=== PATIENT | male | born 1960 ===

== ENCOUNTER 2017-05-19 | Inpatient (IN) | payer OTHER ==
[~2017-05-19] MED LIST: Gadodiamide 287 mg/ml 20 ml IV ONE
[2017-05-19] MEDS ORDERED: Sodium Chloride 0.9% 1,000 ML IV ONE (00:22)
[2017-05-19] MEDS ORDERED: Sodium Chloride 0.9% 1,000 ML ONE (00:35)
[2017-05-19 00:50] LABS: BASO % 0.2 % (0.0-2.0); EOS # 0.1 K/uL (0.0-0.7); EOS % 0.4 % (0.0-4.0); HEMOGLOBIN 13.9 g/dL (12.0-18.0); LYMPH # 0.5 K/uL (1.0-4.3); LYMPH % 3.4 % (20.0-40.0); MEAN CELL VOLUME 82.4 fL (80.0-94.0); MEAN PLATELET VOLUME 9.3 fL (7.2-11.7); MONO # 0.1 K/uL (0.0-0.8); MONO % 0.7 % (0.0-10.0); NEUT # 14.8 K/uL (1.8-7.0); NEUT % 95.3 % (50.0-75.0); PLATELET COUNT 286 K/uL (130-400); RBC 4.98 Mil/uL (4.40-5.90); RED CELL DISTRIBUTION WIDTH 14.6 % (11.5-14.5); WHITE BLOOD COUNT 15.5 K/uL (4.8-10.8)
[2017-05-19 00:55] LABS: URINE BILIRUBIN NEGATIVE (NEGATIVE); URINE CLARITY Clear (Clear); URINE COLOR Yellow (YELLOW); URINE GLUCOSE (UA) NORMAL (Normal); URINE LEUKOCYTE ESTERASE NEG Leu/uL (Negative); URINE NITRATE NEGATIVE (NEGATIVE); URINE PROTEIN NEGATIVE (NEGATIVE)
[2017-05-19 00:56] LABS: URINE BLOOD 1+ (NEGATIVE)
[2017-05-19 01:07] LABS: ALB/GLOB RATIO 1.1 (1.0-2.1); ALBUMIN 3.9 g/dL (3.5-5.0); ALT/SGPT 334 U/L (21-72); AST/SGOT 234 U/L (17-59); BLOOD UREA NITROGEN 14 mg/dL (9-20); CALCIUM 9.3 mg/dl (8.6-10.4); GFR AFRICAN-AMERICAN > 60; GFR NON-AFRICAN AMERICAN > 60; LIPASE 96 U/L (23-300)
[2017-05-19] MEDS ORDERED: Iodixanol 320 MG/ML 100 ML BOTTLE IV ONE (01:17)
--- NOTE | 2017-05-19 01:55 | C.PDOC ---
History Of Present Illness 56 yo male w/PMHx of NIDDM, HTN, come in for evaluation of fever, chills, epigastric pain associated with N/V gradually developed since yesterday. Pt reports, epigastric pain worse after food intake, today had 4 episodes of non- bilious vomiting. Otherwise, pt denies high fever, lethargy, headache, dizziness , sore throat, neck pain, cough, CP, SOB, dyspnea, wheezing, hematemesis, melena , diarrhea, back pain, UTI sx, rash, denies recent travel or known sick contact. Ambulate to ED for evaluation, appears in pain. Time Seen by Provider: 05/19/17 00:04 Chief Complaint (Nursing): Abdominal Pain History Per: Patient Onset/Duration Of Symptoms: Gradual Past Medical History Reviewed: Historical Data, Nursing Documentation, Vital Signs Vital Signs: Last Vital Signs Temp 98 F 05/21/17 16:00 Pulse 64 05/21/17 16:00 Resp 20 05/21/17 16:00 BP 156/96 H 05/21/17 16:00 Pulse Ox 98 05/21/17 16:00 - Medical History PMH: Diabetes, HTN, Hypercholesterolemia Surgical History: Cholecystectomy Family History: States: No Known Family Hx - Social History Hx Tobacco Use: No Hx Alcohol Use: Yes Hx Substance Use: No - Immunization History Hx Tetanus Toxoid Vaccination: No Hx Influenza Vaccination: No Review Of Systems Except As Marked, All Systems Reviewed And Found Negative. Constitutional: Positive for: Fever, Chills ENT: Negative for: Nose Discharge, Nose Congestion, Throat Pain, Throat Swelling Cardiovascular: Negative for: Chest Pain, Palpitations Respiratory: Negative for: Cough, Shortness of Breath, Wheezing Gastrointestinal: Positive for: Nausea, Vomiting, Abdominal Pain. Negative for : Diarrhea, Melena, Hematochezia, Hematemesis Genitourinary: Negative for: Dysuria, Frequency, Incontinence Musculoskeletal: Negative for: Neck Pain, Back Pain Neurological: Negative for: Weakness, Numbness, Altered Mental Status, Headache , Dizziness Physical Exam - Physical Exam Appears: Well, Non-toxic, No Acute Distress Skin: Normal Color, Warm, Dry, No Rash, No Jaundice Head: Normacephalic Eye(s): bilateral: PERRL Ear(s): Bilateral: Normal Nose: No Flaring, No Discharge Oral Mucosa: Moist, No Drooling Throat: No Erythema, No Drooling Neck: Trachea Midline, Supple Cardiovascular: Rhythm Regular, No Murmur, No JVD Respiratory: No Decreased Breath Sounds, No Accessory Muscle Use, No Rales, No Rhonchi, No Stridor, No Wheezing Gastrointestinal/Abdominal: Soft, Tenderness (mild epigastric), No Organomegaly , No Distention, No Guarding, No Rebound Back: No CVA Tenderness Extremity: Normal ROM, No Deformity, No Swelling Neurological/Psych: Oriented x3, Normal Speech ED Course And Treatment - Laboratory Results Result Diagrams: 05/21/17 07:40 05/21/17 07:40 Lab Interpretation: Abnormal O2 Sat by Pulse Oximetry: 95 Pulse Ox Interpretation: Normal - Radiology CXR: Interpreted by Me, Viewed By Me CXR Interpretation: Yes: Infiltrates (RLL?) - CT Scan/US CT abd/pelvis Other Rad Studies (CT/US): Radiology Report Reviewed CT/US Interpretation: EXAM: CT Abdomen and Pelvis With Intravenous Contrast. CLINICAL HISTORY: 56 years old, male; Pain; Abdominal pain; Prior surgery; Surgery type: Cholysectomy; Additional info: Abd. Pain, high lft. TECHNIQUE: Axial computed tomography images of the abdomen and pelvis with intravenous contrast. All CT. scans at this facility use one or more dose reduction techniques, viz.: automated exposure control;. ma/kV adjustment per patient size (including targeted exams where dose is matched to indication; i.e. head) ; or iterative reconstruction technique. Coronal and sagittal reformatted images were created and reviewed. CONTRAST: 100 mL of [id number] administered intravenously. COMPARISON: No relevant prior studies available. FINDINGS: Lower thorax: No acute findings. ABDOMEN: Liver: Fatty infiltration. Minimal intrahepatic ductal dilatation. Gallbladder and bile ducts: Stent within common bile duct. Mild dilatation of common. hepatic/ proximal common bile duct. Soft tissue density within common hepatic/proximal common bile. duct. Apparent mild mural enhancement of common hepatic/common bile duct. Contracted or. surgically absent gallbladder. Pancreas: No ductal dilation. No mass. Spleen: No splenomegaly. Adrenals: No mass. Kidneys and ureters: No mass. No hydronephrosis. Stomach and bowel: Few segmental areas of probable underdistention of colon. No definite mural. thickening. No obstruction. Appendix: Normal caliber. No inflammation. PELVIS: Bladder: Unremarkable. Reproductive: Unremarkable as visualized. ABDOMEN and PELVIS: Intraperitoneal space: No significant fluid collection. No free air. Bones/ joints: Probable bone island. No acute fracture. Soft tissues: Small umbilical hernia containing sidewall of bowel. Tiny RIGHT inguinal hernia. containing fat. Vasculature: Unremarkable. No aneurysm. Lymph nodes: No pathologically enlarged lymph nodes. IMPRESSION: 1. Biliary ductal dilatation. Mild enhancement of common hepatic/common bile duct, cannot exclude. cholangitis. Soft tissue density within common hepatic/common bile duct may represent calculi or. mass. Suggest MRI/MRCP. 2. Incidental/non-acute findings are described above. Progress Note: Pt remained stable during the Ed evaluation, reports minimal improvement in pain. results review, pt has clinical findings c/w acute cholangitis, fever, acute leukocytosis with bandemia, abnormal LFTs. Blood cx- penidng. Zosyn given empirically. case discussed with Hospitalist and admission arranged. Disposition - Disposition Disposition: HOSPITALIZED Disposition Time: 03:15 Condition: FAIR - Clinical Impression Clinical Impression: Cholangitis
[2017-05-19 01:57] LABS: BANDS 24 % (0-2); LYMPHOCYTE 6 % (20-40); MYELOCYTE 1 % (0-0); NEUTROPHIL 69 % (50-75); PLATELET ESTIMATE NORMAL (NORMAL); TOTAL CELLS COUNTED 100
--- NOTE | 2017-05-19 03:09 | CT ---
EXAM: CT Abdomen and Pelvis With Intravenous Contrast CLINICAL HISTORY: 56 years old, male; Pain; Abdominal pain; Prior surgery; Surgery type: Cholysectomy; Additional info: Abd. Pain, high lft TECHNIQUE: Axial computed tomography images of the abdomen and pelvis with intravenous contrast. All CT scans at this facility use one or more dose reduction techniques, viz.: automated exposure control; ma/kV adjustment per patient size (including targeted exams where dose is matched to indication; i.e. head); or iterative reconstruction technique. Coronal and sagittal reformatted images were created and reviewed. CONTRAST: 100 mL of [id number] administered intravenously. COMPARISON: No relevant prior studies available. FINDINGS: Lower thorax: No acute findings. ABDOMEN: Liver: Fatty infiltration. Minimal intrahepatic ductal dilatation. Gallbladder and bile ducts: Stent within common bile duct. Mild dilatation of common hepatic/proximal common bile duct. Soft tissue density within common hepatic/proximal common bile duct. Apparent mild mural enhancement of common hepatic/common bile duct. Contracted or surgically absent gallbladder. Pancreas: No ductal dilation. No mass. Spleen: No splenomegaly. Adrenals: No mass. Kidneys and ureters: No mass. No hydronephrosis. Stomach and bowel: Few segmental areas of probable underdistention of colon. No definite mural thickening. No obstruction. Appendix: Normal caliber. No inflammation. PELVIS: Bladder: Unremarkable. Reproductive: Unremarkable as visualized. ABDOMEN and PELVIS: Intraperitoneal space: No significant fluid collection. No free air. Bones/joints: Probable bone island. No acute fracture. Soft tissues: Small umbilical hernia containing sidewall of bowel. Tiny RIGHT inguinal hernia containing fat. Vasculature: Unremarkable. No aneurysm. Lymph nodes: No pathologically enlarged lymph nodes. IMPRESSION: 1. Biliary ductal dilatation. Mild enhancement of common hepatic/common bile duct, cannot exclude cholangitis. Soft tissue density within common hepatic/common bile duct may represent calculi or mass. Suggest MRI/MRCP. 2. Incidental/non-acute findings are described above.
[2017-05-19] MEDS ORDERED: Piperacill/Tazo 3.375gm in Dex 3.375 GM/50 ML BAG IVPB STA (03:38)
[2017-05-19] MEDS ORDERED: Albuterol-Ipratrop 3 mg / 0.5 (3 ml) UD ONE (03:44)
[2017-05-19 03:49] LABS: MONOCYTE 0 % (0-10)
[2017-05-19] MEDS: Piperacillin/Tazobact 3.375 gm 100 ML IV STA ×2 (04:08→04:11)
[2017-05-19] MEDS ORDERED: Potassium Chloride 20 mEq ER Tab PO ONE (05:00)
[2017-05-19] MEDS: Sodium Chloride 0.9% 1,000 ML IV SCH ×2 (05:10→14:48)
--- NOTE | 2017-05-19 05:13 | CP.PCM.HP ---
<Nicki Dupree - Last Filed: 05/19/17 05:13> History of Present Illness - History of Present Illness History of Present Illness: CC: Abdominal pain HPI: Patient is a 56 year old male with PMH NIDDM and HTN who presents to the ED complaining of epigastric pain. Patient said the pain started a couple of days ago as a sharp pain radiating towards the right upper quadrant, worse with food, which gradually worsened until today when he started having fever, chills , nausea, and vomiting. Patient says he vomited 4 times today and describes it as non bloody and non bilious. Patient admits to associated dizziness, headache , weakness, and shortness of breath. Patient also admits to constipation, which he says is normal for him and not new. Of note, patient mentions that he had his gallbladder removed 10 years ago for similar symptoms. He also mentions recent travel to the [place] in February of last year. Patient denies syncope, changes in vision/hearing, chest pain, palpitations, diarrhea, changes in urination, and pain/numbness in the lower extremities. PMH: NIDDM and HTN Meds: Lisinopril/HCTZ 20/25 daily, Metformin 500 mg BID, Glipizide 5 mg daily Allergies: NKDA PSH: cholecystectomy (10 years ago) FH: mother had hypertension and of unknown liver disease, father had hypertension SH: drinks once/month 2-3 beers, denies tobacco and elicit drug use Present on Admission - Present on Admission Any Indicators Present on Admission: No Review of Systems - Review of Systems All systems: reviewed and no additional remarkable complaints except (as per HPI ) Past Patient History - Infectious Disease Hx of Infectious Diseases: None - Past Social History Smoking Status: Never Smoked - CARDIAC Hx Hypercholesterolemia: Yes Hx Hypertension: Yes - ENDOCRINE/METABOLIC Hx Diabetes Mellitus Type 2: Yes - PSYCHIATRIC Hx Substance Use: No - SURGICAL HISTORY Hx Cholecystectomy: Yes - ANESTHESIA Hx Anesthesia: Yes Hx Anesthesia Reactions: No Meds Allergies/Adverse Reactions: Allergies Allergy/AdvReac Type Severity Reaction Status Date / Time No Known Allergies Allergy Verified 05/19/17 00:14 Physical Exam - Constitutional Appears: Non-toxic, No Acute Distress - Head Exam Head Exam: ATRAUMATIC, NORMAL INSPECTION, NORMOCEPHALIC - Eye Exam Eye Exam: EOMI, Normal appearance, PERRL. absent: Scleral icterus - ENT Exam ENT Exam: Mucous Membranes Moist - Neck Exam Neck exam: Positive for: Normal Inspection - Respiratory Exam Respiratory Exam: Clear to Auscultation Bilateral, NORMAL BREATHING PATTERN. absent: Accessory Muscle Use, Rales, Rhonchi, Wheezes, Respiratory Distress - Cardiovascular Exam Cardiovascular Exam: Tachycardia, REGULAR RHYTHM, +S1, +S2. absent: Bradycardia , Diastolic murmur, Gallop, Rubs, Systolic Murmur - GI/Abdominal Exam GI & Abdominal Exam: Normal Bowel Sounds, Soft, Tenderness (mild epigastric and RUQ). absent: Distended, Guarding - Extremities Exam Extremities exam: Positive for: normal inspection. Negative for: calf tenderness, pedal edema - Neurological Exam Neurological exam: Alert, Oriented x3 - Psychiatric Exam Psychiatric exam: Normal Affect, Normal Mood - Skin Skin Exam: Dry, Intact, Normal Color, Warm Results - Vital Signs Recent Vital Signs: Last Vital Signs Temp 99.9 F H 05/19/17 04:41 Pulse 80 05/19/17 04:41 Resp 14 05/19/17 04:41 BP 124/84 05/19/17 04:41 Pulse Ox 98 05/19/17 04:41 - Labs Result Diagrams: 05/19/17 00:47 05/19/17 00:47 Labs: Laboratory Results - last 24 hr 05/19/17 05/19/17 05/19/17 00:47 00:47 00:47 WBC 15.5 H RBC 4.98 Hgb 13.9 Hct 41.0 MCV 82.4 MCH 28.0 MCHC 34.0 RDW 14.6 H Plt Count 286 MPV 9.3 Neut % (Auto) 95.3 H Lymph % (Auto) 3.4 L [place] % (Auto) 0.7 Eos % (Auto) 0.4 Baso % (Auto) 0.2 Neut # (Auto) 14.8 H Lymph # (Auto) 0.5 L [place] # (Auto) 0.1 Eos # (Auto) 0.1 Baso # (Auto) 0.0 Neutrophils % (Manual) 69 Band Neutrophils % 24 H* Lymphocytes % (Manual) 6 L Monocytes % (Manual) 0 Myelocytes % 1 H Platelet Estimate Normal Sodium 139 Potassium 2.9 L Chloride 96 L Carbon Dioxide 29 Anion Gap 17 BUN 14 Creatinine 0.9 Est GFR ( Amer) > 60 Est GFR (Non-Af Amer) > 60 Random Glucose 182 H Calcium 9.3 Total Bilirubin 1.7 H AST 234 H ALT 334 H Alkaline Phosphatase 173 H Total Protein 7.6 Albumin 3.9 Globulin 3.7 Albumin/Globulin Ratio 1.1 Lipase 96 Urine Color Yellow Urine Clarity Clear Urine pH 6.0 Ur Specific [place] 1.012 Urine Protein Negative Urine Glucose (UA) Normal Urine Ketones Negative Urine Blood 1+ H Urine Nitrate Negative Urine Bilirubin Negative Urine Urobilinogen 2.0 Ur Leukocyte Esterase Neg Urine WBC (Auto) 1 Urine RBC (Auto) 7 H Influenza Typ A,B (EIA) 05/19/17 00:47 WBC RBC Hgb Hct MCV MCH MCHC RDW Plt Count MPV Neut % (Auto) Lymph % (Auto) [place] % (Auto) Eos % (Auto) Baso % (Auto) Neut # (Auto) Lymph # (Auto) [place] # (Auto) Eos # (Auto) Baso # (Auto) Neutrophils % (Manual) Band Neutrophils % Lymphocytes % (Manual) Monocytes % (Manual) Myelocytes % Platelet Estimate Sodium Potassium Chloride Carbon Dioxide Anion Gap BUN Creatinine Est GFR ( Amer) Est GFR (Non-Af Amer) Random Glucose Calcium Total Bilirubin AST ALT Alkaline Phosphatase Total Protein Albumin Globulin Albumin/Globulin Ratio Lipase Urine Color Urine Clarity Urine pH Ur Specific [place] Urine Protein Urine Glucose (UA) Urine Ketones Urine Blood Urine Nitrate Urine Bilirubin Urine Urobilinogen Ur Leukocyte Esterase Urine WBC (Auto) Urine RBC (Auto) Influenza Typ A,B (EIA) Negative for flu a/b Assessment & Plan (1) Cholangitis Assessment and Plan: * Given zosyn, zofran, pepcid, and 1L bolus NS in ED * GI consulted, Dr. Quarles, help appreciated * S/P cholecystectomy 10 years ago * Tachycardic @ 103 bpm * Leukocytosis 15.5, Bandemia 24 * Temp 100.2 on admission * BP stable @ 136/84 * AST/ALT/TBili: 234/334/1.7 * NPO, NS @ 100cc/h * blood cultures pending Imaging * Abdomen/Pelvis CT: Biliary ductal dilatation, mild enhancement of common hepatic/common bile duct (cannot exclude cholangitis), and soft tissue density within common hepatic/common bile duct, which may represent calculi or mass ( Suggest MRI/MRCP). Meds * Zosyn * Toradol prn pain * Motrin prn fever * Zofran prn nausea/vomiting Status: Acute (2) Hypokalemia Assessment and Plan: * K 2.9 on admission * replaced * monitor with morning labs Status: Acute (3) Lgl-[id number]-atsmybzid diabetes mellitus without complications Assessment and Plan: * Monitor with accuchecks ACHS * ISS low dose * Will hold home metformin and glipizide for now Status: Chronic (4) Hypertension Assessment and Plan: * BP 136/84 on admission * Start home med: Lisinopril/HCTZ 20/25 mg daily * monitor Status: Chronic (5) Constipation Assessment and Plan: * Colace 100 mg BID Status: Chronic (6) Prophylactic measure Assessment and Plan: * DVT: Ambulates, Heparin, SCDs * GI: protonix Status: Acute <Joselito Smith - Last Filed: 05/19/17 06:29> Results - Vital Signs Recent Vital Signs: Last Vital Signs Temp 98.3 F 05/19/17 05:12 Pulse 86 05/19/17 05:12 Resp 20 05/19/17 05:12 BP 114/74 05/19/17 05:12 Pulse Ox 97 05/19/17 05:12 - Labs Result Diagrams: 05/19/17 00:47 05/19/17 00:47 Labs: Laboratory Results - last 24 hr 05/19/17 05/19/17 05/19/17 00:47 00:47 00:47 WBC 15.5 H RBC 4.98 Hgb 13.9 Hct 41.0 MCV 82.4 MCH 28.0 MCHC 34.0 RDW 14.6 H Plt Count 286 MPV 9.3 Neut % (Auto) 95.3 H Lymph % (Auto) 3.4 L [place] % (Auto) 0.7 Eos % (Auto) 0.4 Baso % (Auto) 0.2 Neut # (Auto) 14.8 H Lymph # (Auto) 0.5 L [place] # (Auto) 0.1 Eos # (Auto) 0.1 Baso # (Auto) 0.0 Neutrophils % (Manual) 69 Band Neutrophils % 24 H* Lymphocytes % (Manual) 6 L Monocytes % (Manual) 0 Myelocytes % 1 H Platelet Estimate Normal Sodium 139 Potassium 2.9 L Chloride 96 L Carbon Dioxide 29 Anion Gap 17 BUN 14 Creatinine 0.9 Est GFR ( Amer) > 60 Est GFR (Non-Af Amer) > 60 Random Glucose 182 H Calcium 9.3 Total Bilirubin 1.7 H AST 234 H ALT 334 H Alkaline Phosphatase 173 H Total Protein 7.6 Albumin 3.9 Globulin 3.7 Albumin/Globulin Ratio 1.1 Lipase 96 Urine Color Yellow Urine Clarity Clear Urine pH 6.0 Ur Specific [place] 1.012 Urine Protein Negative Urine Glucose (UA) Normal Urine Ketones Negative Urine Blood 1+ H Urine Nitrate Negative Urine Bilirubin Negative Urine Urobilinogen 2.0 Ur Leukocyte Esterase Neg Urine WBC (Auto) 1 Urine RBC (Auto) 7 H Influenza Typ A,B (EIA) 05/19/17 00:47 WBC RBC Hgb Hct MCV MCH MCHC RDW Plt Count MPV Neut % (Auto) Lymph % (Auto) [place] % (Auto) Eos % (Auto) Baso % (Auto) Neut # (Auto) Lymph # (Auto) [place] # (Auto) Eos # (Auto) Baso # (Auto) Neutrophils % (Manual) Band Neutrophils % Lymphocytes % (Manual) Monocytes % (Manual) Myelocytes % Platelet Estimate Sodium Potassium Chloride Carbon Dioxide Anion Gap BUN Creatinine Est GFR ( Amer) Est GFR (Non-Af Amer) Random Glucose Calcium Total Bilirubin AST ALT Alkaline Phosphatase Total Protein Albumin Globulin Albumin/Globulin Ratio Lipase Urine Color Urine Clarity Urine pH Ur Specific [place] Urine Protein Urine Glucose (UA) Urine Ketones Urine Blood Urine Nitrate Urine Bilirubin Urine Urobilinogen Ur Leukocyte Esterase Urine WBC (Auto) Urine RBC (Auto) Influenza Typ A,B (EIA) Negative for flu a/b Assessment & Plan - Date & Time Date: 05/19/17 (I have seen and examined the patient. I agree with the findings and plan of care as documented by Dr. Dupree. Patient with choledocolithiasis and cholangitis. SIRS positive. Check blood cultures. Consult to GI. Barry for now. Symptomatic treatment. Monitor for hemodynamic instability. ) Time: 06:28 Attending/Attestation - Attestation I have personally seen and examined this patient.: Yes I have fully participated in the care of the patient.: Yes I have reviewed all pertinent clinical information: Yes
[2017-05-19] MEDS ORDERED: (Novolin R) Insulin Human Regular 100 units/ml vial SC SCH (07:30)
[2017-05-19 07:33] LABS: INR 1.1; PROTHROMBIN TIME 12.7 SECONDS (9.7-12.2)
--- NOTE | 2017-05-19 08:22 | CP.PCM.PCO ---
Physician Communication Note - Physician Communication Note Physician Communication Note: held vaccines in light of possible infectious etiology, recommend outpatien
--- NOTE | 2017-05-19 08:24 | RAD ---
HISTORY: abd pain COMPARISON: No prior. TECHNIQUE: Chest PA and lateral FINDINGS: LUNGS: 1.6 cm nodular density overlying the junction of the right posterior 6th and anterior 3rd ribs. Additional nodular density overlying the posterior right 4th rib. No focal consolidation. PLEURA: No significant pleural effusion identified. No pneumothorax apparent. CARDIOVASCULAR: Normal. OSSEOUS STRUCTURES: Unchanged. VISUALIZED UPPER ABDOMEN: Normal. OTHER FINDINGS: None. IMPRESSION: No focal consolidation or pleural effusion. Right upper and midlung nodular densities as described above. CT scan of the chest can be obtained for further evaluation. Patient admitted.
[2017-05-19] MEDS: (Novolin R) Insulin Human Regular 100 units/ml vial SC SCH ×4 (08:29→21:33)
--- NOTE | 2017-05-19 08:57 | CP.PCM.PN ---
Subjective - Date & Time of Evaluation Date of Evaluation: 05/19/17 Time of Evaluation: 08:55 - Subjective Subjective: Medical Attending Note: Patient seen and examined at bedside. Patient reports since he has been feeling unwell and became worse yesterday. Patient reports he threw up 4x yesterday. Currently, patient denies fever, denies chest pain, denies chills, denies shortness of breathe, reports mild nausea, denies vomitting, denies abdominal pain, denies dysuria, denies frequency, and denies hematuria and reports constipation. patient reports he had cholecystectomy at [facility] about ten years ago for gallstones and he was not aware about any stent. Patient was visited by Dr. Quarles this morning. Objective - Vital Signs/Intake and Output Vital Signs (last 24 hours): Temp Pulse Resp BP Pulse Ox 98.1 F 71 20 120/74 96 05/19/17 08:04 05/19/17 08:04 05/19/17 08:04 05/19/17 08:04 05/19/17 08:04 Intake and Output: 05/19/17 05/19/17 06:59 18:59 Intake Total 150 Balance 150 - Medications Medications: Current Medications Docusate Sodium (Colace) 100 mg PO BID [facility] Heparin Sodium (Porcine) (Heparin) 5,000 units SC Q12 [facility] Hydrochlorothiazide (Hydrodiuril) 25 mg PO DAILY [facility] Piperacillin Sod/Tazobactam (Sod 3.375 gm/ Sodium Chloride) 100 mls @ 200 mls/ hr IVPB Q6H [facility] Sodium Chloride (Sodium Chloride 0.9%) 1,000 mls @ 100 mls/hr IV .Q10H [facility] Last Admin: 05/19/17 05:10 Dose: 100 mls/hr Metronidazole (Flagyl) 500 mg in 100 mls @ 100 mls/hr IVPB Q8 [facility] Insulin Human Regular (Novolin R) 0 unit SC ACHS [facility] PRN Reason: Protocol Last Admin: 05/19/17 08:29 Dose: Not Given Ketorolac Tromethamine (Toradol) 30 mg IV Q6 PRN PRN Reason: Pain, moderate (4-7) Lisinopril (Zestril) 20 mg PO DAILY [facility] Ondansetron HCl (Zofran Inj) 4 mg IVP Q6 PRN PRN Reason: Nausea/Vomiting Pantoprazole Sodium (Protonix Inj) 40 mg IVP DAILY [facility] - Labs Labs: 05/19/17 00:47 05/19/17 00:47 PT 12.7 SECONDS (9.7-12.2) H 05/19/17 07:22 INR 1.1 05/19/17 07:22 - Constitutional Appears: Non-toxic, No Acute Distress, Unkempt - Head Exam Head Exam: NORMAL INSPECTION - Eye Exam Eye Exam: EOMI, PERRL - ENT Exam ENT Exam: Mucous Membranes Moist - Neck Exam Neck Exam: absent: Lymphadenopathy, Meningismus - Respiratory Exam Respiratory Exam: Clear to Ausculation Bilateral, NORMAL BREATHING PATTERN. absent: Rales, Rhonchi, Wheezes - Cardiovascular Exam Cardiovascular Exam: REGULAR RHYTHM, +S1, +S2 - GI/Abdominal Exam GI & Abdominal Exam: Distended (mild), Soft, Normal Bowel Sounds. absent: Firm , Guarding, Rigid, Tenderness, Rebound Additional comments: negative Lee's sign negative suprapubic tenderness - Extremities Exam Extremities Exam: absent: Pedal Edema, Tenderness - Neurological Exam Neurological Exam: Alert, Awake, Oriented x3 - Psychiatric Exam Psychiatric exam: Normal Affect, Normal Mood - Skin Skin Exam: Dry, Intact, Normal Color, Warm Assessment and Plan (1) SIRS (systemic inflammatory response syndrome) Assessment & Plan: Criteria: WBC: 15.5, Bands 24 Tmax: 100.2F Lactate Acid: 2.0 Repeat lactate Acid at: 10:22 AM Pending Blood cultures, UA and urine culture ABx: Zosyn 3.375 IV Q6H (active since 05/19/17), Flagyl 500mg IVPB Q8H (active since 05/19/17) NS 100cc/hr Status: Acute (2) Ascending cholangitis Assessment & Plan: 05/17: GI (Dr. Quarles) on consult-->help appreciated Case discussed with GI, suspection for infected in light of stent history, add Flagyl in addition to Zosyn, and monitor blood culture results Recommends for lipase, amylase and prefer for MRCP with contrast if possible Abx: Zosyn 3.375 IVPB Q6H (active since 05/19/17) Flagyl 500mg IVPB Q8H (active since 05/19/17) CT Abdomen/Pelvis (05/19/17): Biliary ductal dilatation. Mild enhancement of common hepatic/common bile ducy, cannot exclude cholangitis. Soft tissue density within common hepatic/common bile duct may represent calculi or mass. Suggest MRI/MRCP. Incidental/non-acute findings are described above. pending MRCP for today Status: Acute (3) Transaminitis Assessment & Plan: Elevated Pending hepatitis panel, GI markers CT Abdomen/Pelvis (05/19/17): Biliary ductal dilatation. Mild enhancement of common hepatic/common bile ducy, cannot exclude cholangitis. Soft tissue density within common hepatic/common bile duct may represent calculi or mass. Suggest MRI/MRCP. Incidental/non-acute findings are described above. Pending MRCP for today Status: Acute (4) Hypokalemia Assessment & Plan: Replete f/u repeat BMP Status: Acute (5) Constipation Assessment & Plan: Patient reports his normal he goes every couple of days Status: Chronic (6) Hypertension Assessment & Plan: off PO medications since he is NPO monitor vital signs on IV fluids Status: Chronic (7) Anv-gkyqytv-nwdrrnxva diabetes mellitus without complications Assessment & Plan: Pending [id number] Hypoglycemic protocol Monitor Accuchecks Q6H Off metformin (home medication) Status: Chronic (8) Prophylactic measure Assessment & Plan: NPO Protonix 40mg IV daily Heparin 5000 units [id number] Status: Acute
[2017-05-19 09:08] LABS: URINE BILIRUBIN NEGATIVE (NEGATIVE); URINE BLOOD 1+ (NEGATIVE); URINE CLARITY Clear (Clear); URINE COLOR Yellow (YELLOW); URINE GLUCOSE (UA) NORMAL (Normal); URINE LEUKOCYTE ESTERASE NEG Leu/uL (Negative); URINE NITRATE NEGATIVE (NEGATIVE); URINE PROTEIN NEGATIVE (NEGATIVE); URINE UROBILINOGEN NORMAL mg/dL (0.2-1.0)
[2017-05-19] MEDS ORDERED: Dextrose 50% SYRINGE Inj (50 ml) IV PRN (09:20)
[2017-05-19] MEDS ORDERED: Glucagon Recombinant 1 mg Inj IM PRN (09:20)
[2017-05-19] MEDS ORDERED: Pantoprazole 40 mg EC Tab PO SCH (10:00)
[2017-05-19] MEDS: metroNIDAZOLE IV 500 mg/100 ml 500 MG/100 ML BAG IVPB SCH ×3 (11:14→21:31)
[2017-05-19] MEDS: Piperacillin/Tazobact 3.375 GM in Sodium Chloride 100 ML IVPB SCH ×3 (11:37→22:22)
[2017-05-19 14:30] LABS: BLOOD UREA NITROGEN 11 mg/dL (9-20); CALCIUM 9.2 mg/dl (8.6-10.4); GFR AFRICAN-AMERICAN > 60; GFR NON-AFRICAN AMERICAN > 60
--- NOTE | 2017-05-19 14:45 | CON ---
DATE: LOCATION: [address] [place] [address] B. SUBJECTIVE: I was called for GI consultation by the admitting MD this morning. The patient seen and fully examined at 07:10 a.m. The entire chart is reviewed including but not limited to the most recent lab and study results, current and previous medication list, current and previous medical events. Case discussed with staff at length. This is a 56-year-old male, as per his statement was status post cholecystectomy about 10 years ago, open, was admitted to the hospital due to severe abdominal pain with episode of nausea and dyspepsia. No reported active bleeding. CAT scan report is seen with possible biliary stent in the common bile duct. The patient is not aware of it as his cholecystectomy done 10 years ago at center. PAST MEDICAL HISTORY: Hypertension, diabetes, hyperlipidemia status post cholecystectomy. LABORATORY DATA: The most abnormal blood workup showed leukocytosis of 15.5, low potassium 2.9, blood glucose 204 with total bilirubin 1.7, AST 234, ALT 334, alkaline phosphatase 173. PHYSICAL EXAMINATION: VITAL SIGNS: The patient is afebrile at the time I saw him with stable vital signs. IMPRESSION: 1. Status post cholecystectomy. 2. Biliary stent insertion as per CAT scan report with possible and early stage of mild ascending cholangitis. 3. Hypertension. 4. Hyperlipidemia. 5. Diabetes mellitus by history. SUGGESTION: 1. IV antibiotics. 2. MRCP. 3. Serum lipase, amylase level. 4. No aggressive GI workup in the meantime for now and blood culture to be ordered as well as ID consultation. 5. Correcting underlying electrolyte imbalance. 6. We will start the patient on Flagyl IV. Sonny Hi MD
[2017-05-20] MEDS: Sodium Chloride 0.9% 1,000 ML IV SCH ×4 (01:40→23:34)
[2017-05-20] MEDS: Piperacillin/Tazobact 3.375 GM in Sodium Chloride 100 ML IVPB SCH ×4 (03:42→22:52)
[2017-05-20] MEDS: metroNIDAZOLE IV 500 mg/100 ml 500 MG/100 ML BAG IVPB SCH ×3 (05:23→22:46)
[2017-05-20] MEDS: (Novolin R) Insulin Human Regular 100 units/ml vial SC SCH ×4 (08:13→22:48)
[2017-05-20 08:36] LABS: HEPATITIS B SURFACE AG Negative (NEGATIVE)
[2017-05-20 08:42] LABS: HEPATITIS A IGM NEGATIVE (NEGATIVE); HEPATITIS B CORE AB NEGATIVE (NEGATIVE)
[2017-05-20 08:53] LABS: HEPATITIS C ANTIBODY NEGATIVE (NEGATIVE)
[2017-05-20 09:03] LABS: BASO # 0.1 K/uL (0.0-0.2); BASO % 0.7 % (0.0-2.0); EOS # 0.2 K/uL (0.0-0.7); EOS % 2.3 % (0.0-4.0); HEMOGLOBIN 12.8 g/dL (12.0-18.0); LYMPH # 1.8 K/uL (1.0-4.3); LYMPH % 22.5 % (20.0-40.0); MEAN CORPUSCULAR HEMOGLOBIN 28.3 pg (27.0-31.0); MEAN CORPUSCULAR HGB CONC 34.1 g/dL (33.0-37.0); MEAN PLATELET VOLUME 9.5 fL (7.2-11.7); MONO # 0.9 K/uL (0.0-0.8); NEUT # 5.2 K/uL (1.8-7.0); NEUT % 63.5 % (50.0-75.0); NRBC % 0.1 % (0.0-2.0); RBC 4.51 Mil/uL (4.40-5.90); RED CELL DISTRIBUTION WIDTH 14.6 % (11.5-14.5); WHITE BLOOD COUNT 8.1 K/uL (4.8-10.8)
[2017-05-20 09:26] LABS: ALBUMIN 3.5 g/dL (3.5-5.0); ALT/SGPT 204 U/L (21-72); AMYLASE 45 U/L (30-110); AST/SGOT 93 U/L (17-59); BLOOD UREA NITROGEN 11 mg/dL (9-20); CALCIUM 9.1 mg/dl (8.6-10.4); GFR AFRICAN-AMERICAN > 60; GFR NON-AFRICAN AMERICAN > 60; LIPASE 48 U/L (23-300); MAGNESIUM 1.9 mg/dL (1.6-2.3)
[2017-05-20] MEDS: Pantoprazole 40 mg EC Tab PO SCH (10:33)
[2017-05-20] MEDS ORDERED: Potassium Chloride 20 mEq ER Tab PO ONE ×2 (13:00→17:00)
--- NOTE | 2017-05-20 14:13 | CP.PCM.CON ---
History of Present Illness - History of Present Illness History of Present Illness: 56 year old male presents to the ED complaining of epigastric pain which started a couple of days ago and gradually worsened until t he started having fever, chills, nausea, and vomiting. Which promted this admission and referral for ABHISHEK horner Of note, patient mentions that he had his gallbladder removed 10 years ago for similar symptoms. He also mentions recent travel to the [place] in February of last year. Patient denies syncope, changes in vision/hearing, chest pain, palpitations, diarrhea, changes in urination, and pain/numbness in the lower extremities. PMH: NIDDM and HTN Meds: Lisinopril/HCTZ 20/25 daily, Metformin 500 mg BID, Glipizide 5 mg daily Allergies: NKDA PSH: cholecystectomy (10 years ago) FH: mother had hypertension and of unknown liver disease, father had hypertension SH: drinks once/month 2-3 beers, denies tobacco and elicit drug use Review of Systems - Review of Systems All systems: reviewed and no additional remarkable complaints except - Constitutional Constitutional: As Per HPI - EENT Eyes: absent: As Per HPI, Blind Spots, Blurred Vision, Change in Vision, Decreased Night Vision, Diplopia, Discharge, Dry Eye, Exophthalmos, Floaters, Irritation, Itchy Eyes, Loss of Peripheral Vision, Pain, Photophobia, Requires Corrective Lenses, Sees Flashes, Spots in Vision, Tunnel Vision, Other Visual Disturbances, Loss of Vision, Other Ears: absent: As Per HPI, Decreased Hearing, Ear Discharge, Ear Pain, Tinnitus, Abnormal Hearing, Disequilibrium, Dizziness, Other Nose/Mouth/Throat: absent: As Per HPI, Epistaxis, Nasal Congestion, Nasal Discharge, Nasal Obstruction, Nasal Trauma, Nose Pain, Post Nasal Drip, Sinus Pain, Sinus Pressure, Bleeding Gums, Change in Voice, Dental Pain, Dry Mouth, Dysphagia, Halitosis, Hoarsness, Lip Swelling, Mouth Lesions, Mouth Pain, Odynophagia, Sore Throat, Throat Swelling, Tongue Swelling, Facial Pain, Neck Pain, Neck Mass, Other - Cardiovascular Cardiovascular: absent: As Per HPI, Acrocyanosis, Chest Pain, Chest Pain at Rest , Chest Pain with Activity, Claudication, Diaphoresis, Dyspnea, Dyspnea on Exertion, Edema, Irregular Heart Rhythm, Pain Radiating to Arm/Neck/Jaw, Leg Edema, Leg Ulcers, Lightheadedness, Orthopnea, Palpitations, Paroxysmal Nocturnal Dyspnea, Pedal Edema, Radiating Pain, Rapid Heart Rate, Slow Heart Rate, Syncope, Other - Respiratory Respiratory: absent: As Per HPI, Cough, Dyspnea, Hemoptysis, Dyspnea on Exertion , Wheezing, Snoring, Stridor, Pain on Inspiration, Chest Congestion, Excessive Mucous Production, Change in Mucous Color, Pain with Coughing, Other - Gastrointestinal Gastrointestinal: As Per HPI, Abdominal Pain - Genitourinary Genitourinary: absent: As Per HPI, Change in Urinary Stream, Difficulty Urinating, Dysuria, Flank Pain, Hematuria, Pyuria, Nocturia, Urinary Incontinence, Urinary Frequency, Urinary Hesitance, Urinary Urgency, Voiding Freq/Small Amts, Freq UTI, Hx Renal/Bladder Calculi, Hx /Renal Surgery, Bladder Distension, Other - Musculoskeletal Musculoskeletal: absent: As Per HPI, Abnormal Gait, Arthralgias, Atrophy, Back Pain, Deformity, Joint Swelling, Limited Range of Motion, Loss of Height, Muscle Cramps, Muscle Weakness, Myalgias, Neck Pain, Numbness, Radiating Pain into Limb, Stiffness, Tingling, Other - Integumentary Integumentary: absent: As Per HPI, Acne, Alopecia, Bleeding Lesions, Change in Hair, Change in Nails, Change in Pigmentation, Changing Lesions, Dry Skin, Erythema, Furuncle, Hirsutism, Lesions, New Lesions, Non-Healing Lesions, Photosensitivity, Pruritus, Rash, Skin Pain, Skin Ulcer, Sores, Striae, Swelling , Unusual Bruising, Wounds, Jaundice, Other - Neurological Neurological: absent: As Per HPI, Abnormal Gait, Abnormal Hearing, Abnormal Movements, Abnormal Speech, Behavioral Changes, Burning Sensations, Confusion, Convulsions, Disequilibrium, Dizziness, Numbness, Focal Weakness, Frequent Falls , Headaches, Lack of Coordination, Loss of Vision, Memory Loss, Paresthesias, Radicular Pain, Restless Legs, Sensory Deficit, Syncope, Tingling, Tremor, Vertigo, Weakness, Other Visual Disturbances, Other - Psychiatric Psychiatric: absent: As Per HPI, Abnormal Sleep Pattern, Anhedonia, Anxiety, Auditory Hallucinations, Behavioral Changes, Change in Appetite, Change in Libido, Confusion, Depression, Difficulty Concentrating, Hallucinations, Homicidal Ideation, Hopelessness, Irritability, Memory Loss, Mood Swings, Panic Attacks, Paranoia, Suicidal Ideation, Visual Hallucinations, Tactile Hallucinations, Other - Endocrine Endocrine: absent: As Per HPI, Change in Body Appearance, Change in Libido, Cold Intolorance, Deepening of Voice, Excessive Sweating, Fatigue, Flushing, Heat Intolorance, Increase in Ring/Shoe/Hat Size, Palpitations, Polydipsia, Polyphagia, Polyuria, Other - Hematologic/Lymphatic Hematologic: absent: As Per HPI, Easy Bleeding, Easy Bruising, Lymphadenopathy, Other Past Patient History - Infectious Disease Hx of Infectious Diseases: None - Past Medical History & Family History Past Medical History?: Yes - Past Social History Smoking Status: Never Smoked - CARDIAC Hx Hypercholesterolemia: Yes Hx Hypertension: Yes - PULMONARY Hx Respiratory Disorders: No - NEUROLOGICAL Hx Neurological Disorder: No - HEENT Hx HEENT Problems: No - RENAL Hx Chronic Kidney Disease: No - ENDOCRINE/METABOLIC Hx Diabetes Mellitus Type 2: Yes - HEMATOLOGICAL/ONCOLOGICAL Hx Blood Disorders: No - INTEGUMENTARY Hx Dermatological Problems: No - MUSCULOSKELETAL/RHEUMATOLOGICAL Hx Musculoskeletal Disorders: No Hx Falls: No - GASTROINTESTINAL Hx Gastrointestinal Disorders: No - GENITOURINARY/GYNECOLOGICAL Hx Genitourinary Disorders: No - PSYCHIATRIC Hx Substance Use: No - SURGICAL HISTORY Hx Cholecystectomy: Yes - ANESTHESIA Hx Anesthesia: Yes Hx Anesthesia Reactions: No Meds Allergies/Adverse Reactions: Allergies Allergy/AdvReac Type Severity Reaction Status Date / Time No Known Allergies Allergy Verified 05/19/17 00:14 - Medications Medications: Current Medications Dextrose (Dextrose 50% Inj) 0 ml IV STAT PRN; Protocol PRN Reason: Hypoglycemia Protocol Dextrose (Glutose 15) 0 gm PO ONCE PRN; Protocol PRN Reason: Hypoglycemia Protocol Glucagon (Glucagen Diagnostic Kit) 0 mg IM STAT PRN; Protocol PRN Reason: Hypoglycemia Protocol Heparin Sodium (Porcine) (Heparin) 5,000 units SC Q12 [facility] Last Admin: 05/20/17 10:39 Dose: 5,000 units Piperacillin Sod/Tazobactam (Sod 3.375 gm/ Sodium Chloride) 100 mls @ 200 mls/ hr IVPB Q6H [facility] Last Admin: 05/20/17 10:33 Dose: 200 mls/hr Sodium Chloride (Sodium Chloride 0.9%) 1,000 mls @ 100 mls/hr IV .Q10H [facility] Last Admin: 05/20/17 10:50 Dose: Not Given Metronidazole (Flagyl) 500 mg in 100 mls @ 100 mls/hr IVPB Q8 [facility] Last Admin: 05/20/17 13:05 Dose: 100 mls/hr Dextrose (Dextrose 5% In Water 1000 Ml) 1,000 mls @ 0 mls/hr IV .Q0M PRN; Protocol; Per Protocol PRN Reason: Hypoglycemia Protocol Insulin Human Regular (Novolin R) 0 unit SC ACHS [facility] PRN Reason: Protocol Last Admin: 05/20/17 12:35 Dose: Not Given Lisinopril (Zestril) 20 mg PO DAILY [facility] Last Admin: 05/20/17 10:39 Dose: 20 mg Ondansetron HCl (Zofran Inj) 4 mg IVP Q6 PRN PRN Reason: Nausea/Vomiting Pantoprazole Sodium (Protonix Ec Tab) 40 mg PO DAILY [facility] Last Admin: 05/20/17 10:33 Dose: 40 mg Potassium Chloride (K-Dur 20 Meq Er Tab) 40 meq PO ONCE ONE Stop: 05/20/17 17:01 Physical Exam - Constitutional Appears: Non-toxic, Chronically Ill - Head Exam Head Exam: NORMOCEPHALIC - Eye Exam Eye Exam: absent: Scleral icterus - ENT Exam ENT Exam: Mucous Membranes Dry - Neck Exam Neck exam: Negative for: Lymphadenopathy - Respiratory Exam Respiratory Exam: Decreased Breath Sounds, Clear to Auscultation Bilateral - Cardiovascular Exam Cardiovascular Exam: REGULAR RHYTHM, +S1, +S2 - GI/Abdominal Exam GI & Abdominal Exam: Diminished Bowel Sounds, Distended, Soft. absent: Guarding , Rebound, Rigid, Tenderness - Rectal Exam Rectal Exam: Deferred - Exam Exam: NORMAL INSPECTION - Extremities Exam Extremities exam: Positive for: normal inspection - Back Exam Back exam: absent: CVA tenderness (L), CVA tenderness (R), paraspinal tenderness - Neurological Exam Neurological exam: Alert, CN II-XII Intact, Oriented x3, Reflexes Normal - Psychiatric Exam Psychiatric exam: Normal Mood - Skin Skin Exam: Dry, Intact Results - Vital Signs Recent Vital Signs: Last Vital Signs Temp 98.1 F 05/20/17 08:00 Pulse 67 05/20/17 08:00 Resp 20 05/20/17 08:00 BP 145/84 05/20/17 08:00 Pulse Ox 95 05/20/17 08:00 - Labs Result Diagrams: 05/20/17 08:42 05/20/17 08:42 Labs: Laboratory Results - last 24 hr 05/19/17 05/19/17 05/19/17 13:56 13:56 13:56 WBC RBC Hgb Hct MCV MCH MCHC RDW Plt Count MPV Neut % (Auto) Lymph % (Auto) Fleming % (Auto) Eos % (Auto) Baso % (Auto) Neut # (Auto) Lymph # (Auto) Fleming # (Auto) Eos # (Auto) Baso # (Auto) Sodium 144 Potassium 3.3 L Chloride 99 Carbon Dioxide 34 H Anion Gap 15 BUN 11 Creatinine 1.1 Est GFR ( Amer) > 60 Est GFR (Non-Af Amer) > 60 POC Glucose (mg/dL) Random Glucose 137 H Hemoglobin A1c 8.0 H Calcium 9.2 Phosphorus Magnesium Total Bilirubin AST ALT Alkaline Phosphatase Total Protein Albumin Globulin Albumin/Globulin Ratio Amylase Lipase Alpha Fetoprotein 2.0 CA 19-9 Antigen 15.5 Procalcitonin Hepatitis A IgM Ab Hep Bs Antigen Hep B Core IgM Ab Hepatitis C Antibody 05/19/17 05/19/17 05/19/17 13:56 13:56 16:33 WBC RBC Hgb Hct MCV MCH MCHC RDW Plt Count MPV Neut % (Auto) Lymph % (Auto) Fleming % (Auto) Eos % (Auto) Baso % (Auto) Neut # (Auto) Lymph # (Auto) Fleming # (Auto) Eos # (Auto) Baso # (Auto) Sodium Potassium Chloride Carbon Dioxide Anion Gap BUN Creatinine Est GFR ( Amer) Est GFR (Non-Af Amer) POC Glucose (mg/dL) 119 H Random Glucose Hemoglobin A1c Calcium Phosphorus Magnesium Total Bilirubin AST ALT Alkaline Phosphatase Total Protein Albumin Globulin Albumin/Globulin Ratio Amylase Lipase Alpha Fetoprotein CA 19-9 Antigen Procalcitonin 19.37 H Hepatitis A IgM Ab Negative Hep Bs Antigen Negative Hep B Core IgM Ab Negative Hepatitis C Antibody Negative 05/19/17 05/20/17 05/20/17 21:41 07:49 08:42 WBC 8.1 RBC 4.51 Hgb 12.8 Hct 37.4 MCV 83.0 MCH 28.3 MCHC 34.1 RDW 14.6 H Plt Count 280 MPV 9.5 Neut % (Auto) 63.5 Lymph % (Auto) 22.5 Fleming % (Auto) 11.0 H Eos % (Auto) 2.3 Baso % (Auto) 0.7 Neut # (Auto) 5.2 Lymph # (Auto) 1.8 Fleming # (Auto) 0.9 H Eos # (Auto) 0.2 Baso # (Auto) 0.1 Sodium Potassium Chloride Carbon Dioxide Anion Gap BUN Creatinine Est GFR ( Amer) Est GFR (Non-Af Amer) POC Glucose (mg/dL) 130 H 131 H Random Glucose Hemoglobin A1c Calcium Phosphorus Magnesium Total Bilirubin AST ALT Alkaline Phosphatase Total Protein Albumin Globulin Albumin/Globulin Ratio Amylase Lipase Alpha Fetoprotein CA 19-9 Antigen Procalcitonin Hepatitis A IgM Ab Hep Bs Antigen Hep B Core IgM Ab Hepatitis C Antibody 05/20/17 05/20/17 08:42 12:12 WBC RBC Hgb Hct MCV MCH MCHC RDW Plt Count MPV Neut % (Auto) Lymph % (Auto) Fleming % (Auto) Eos % (Auto) Baso % (Auto) Neut # (Auto) Lymph # (Auto) Fleming # (Auto) Eos # (Auto) Baso # (Auto) Sodium 144 Potassium 3.2 L Chloride 101 Carbon Dioxide 30 Anion Gap 16 BUN 11 Creatinine 1.1 Est GFR ( Amer) > 60 Est GFR (Non-Af Amer) > 60 POC Glucose (mg/dL) 95 Random Glucose 132 H Hemoglobin A1c Calcium 9.1 Phosphorus 2.8 Magnesium 1.9 Total Bilirubin 1.1 AST 93 H D ALT 204 H D Alkaline Phosphatase 147 H Total Protein 7.1 Albumin 3.5 Globulin 3.6 Albumin/Globulin Ratio 1.0 Amylase 45 Lipase 48 Alpha Fetoprotein CA 19-9 Antigen Procalcitonin Hepatitis A IgM Ab Hep Bs Antigen Hep B Core IgM Ab Hepatitis C Antibody Assessment & Plan (1) Ascending cholangitis Status: Acute (2) SIRS (systemic inflammatory response syndrome) Status: Acute (3) Transaminitis Status: Acute - Assessment and Plan (Free Text) Assessment: will check cultures may need ERCP and or MRCPDr Willam on consult
--- NOTE | 2017-05-20 16:22 | CP.PCM.PN ---
<Levy Gregg - Last Filed: 05/20/17 16:30> Subjective - Date & Time of Evaluation Date of Evaluation: 05/20/17 Time of Evaluation: 16:20 - Subjective Subjective: Progress note. Pt seen and examined at bedside. No acute distress. No fevers, chills, vomiting , diarrhea. No chest pain, sob. Objective - Vital Signs/Intake and Output Vital Signs (last 24 hours): Temp Pulse Resp BP Pulse Ox 98.1 F 67 20 145/84 95 05/20/17 08:00 05/20/17 08:00 05/20/17 08:00 05/20/17 08:00 05/20/17 08:00 Intake and Output: 05/20/17 05/20/17 06:59 18:59 Intake Total 650 Balance 650 - Medications Medications: Current Medications Dextrose (Dextrose 50% Inj) 0 ml IV STAT PRN; Protocol PRN Reason: Hypoglycemia Protocol Dextrose (Glutose 15) 0 gm PO ONCE PRN; Protocol PRN Reason: Hypoglycemia Protocol Glucagon (Glucagen Diagnostic Kit) 0 mg IM STAT PRN; Protocol PRN Reason: Hypoglycemia Protocol Heparin Sodium (Porcine) (Heparin) 5,000 units SC Q12 [facility] Last Admin: 05/20/17 10:39 Dose: 5,000 units Piperacillin Sod/Tazobactam (Sod 3.375 gm/ Sodium Chloride) 100 mls @ 200 mls/ hr IVPB Q6H [facility] Last Admin: 05/20/17 10:33 Dose: 200 mls/hr Sodium Chloride (Sodium Chloride 0.9%) 1,000 mls @ 100 mls/hr IV .Q10H [facility] Last Admin: 05/20/17 10:50 Dose: Not Given Metronidazole (Flagyl) 500 mg in 100 mls @ 100 mls/hr IVPB Q8 [facility] Last Admin: 05/20/17 13:05 Dose: 100 mls/hr Dextrose (Dextrose 5% In Water 1000 Ml) 1,000 mls @ 0 mls/hr IV .Q0M PRN; Protocol; Per Protocol PRN Reason: Hypoglycemia Protocol Insulin Human Regular (Novolin R) 0 unit SC ACHS [facility] PRN Reason: Protocol Last Admin: 05/20/17 12:35 Dose: Not Given Lisinopril (Zestril) 20 mg PO DAILY [facility] Last Admin: 05/20/17 10:39 Dose: 20 mg Ondansetron HCl (Zofran Inj) 4 mg IVP Q6 PRN PRN Reason: Nausea/Vomiting Pantoprazole Sodium (Protonix Ec Tab) 40 mg PO DAILY [facility] Last Admin: 05/20/17 10:33 Dose: 40 mg Pneumococcal Polyvalent Vaccine (Pneumovax 23 Vaccine) 0.5 ml IM .ONCE ONE Stop: 05/22/17 10:01 Potassium Chloride (K-Dur 20 Meq Er Tab) 40 meq PO ONCE ONE Stop: 05/20/17 17:01 - Labs Labs: 05/20/17 08:42 05/20/17 08:42 PT 12.7 SECONDS (9.7-12.2) H 05/19/17 07:22 INR 1.1 05/19/17 07:22 - Constitutional Appears: Non-toxic, No Acute Distress - Head Exam Head Exam: ATRAUMATIC, NORMAL INSPECTION, NORMOCEPHALIC - Eye Exam Eye Exam: EOMI - ENT Exam ENT Exam: Mucous Membranes Moist - Neck Exam Neck Exam: Full ROM, Normal Inspection - Respiratory Exam Respiratory Exam: NORMAL BREATHING PATTERN. absent: Respiratory Distress - Cardiovascular Exam Cardiovascular Exam: +S1, +S2 - GI/Abdominal Exam GI & Abdominal Exam: Soft, Normal Bowel Sounds. absent: Tenderness - Extremities Exam Extremities Exam: Full ROM, Normal Inspection - Back Exam Back Exam: NORMAL INSPECTION - Neurological Exam Neurological Exam: Alert, Awake, CN II-XII Intact, Oriented x3 - Psychiatric Exam Psychiatric exam: Normal Affect, Normal Mood - Skin Skin Exam: Dry, Intact, Normal Color, Warm Assessment and Plan - Assessment and Plan (Free Text) Assessment: This is a 56 yo male with 1. Cholangitis -GI consult. recs appreciated. Dr. Quarles. -MRCP report pending -metronidazole IV q 8 hrs -zosyn 3.375 g IV q 6 hrs. -Abdomen/Pelvis CT: Biliary ductal dilatation, mild enhancement of common hepatic/common bile duct (cannot exclude cholangitis), and soft tissue density within common hepatic/common bile duct, which may represent calculi or mass ( Suggest MRI/MRCP). -ID consulted. Dr. German. recs appreciated. -cultures negative -AST, ALT, alk phos all trending down 2. Hypokalemia -replete as needed -daily metabolic panels -continue to monitor 3. Hx of DM -holding home meds for now -accuchecks -ISS -hypoglycemia protocol -diabetic bland diet 4. hx of HTN -continue lisinopril 20 mg PO daily 5. Constipation -continue colace bid 6. GI/DVT ppx -scds -protonix daily -heparin sc discussed with Dr. Zaldivar. <Treva Zaldivar V - Last Filed: 05/20/17 22:03> Objective - Vital Signs/Intake and Output Vital Signs (last 24 hours): Temp Pulse Resp BP Pulse Ox 98.0 F 76 20 154/98 H 97 05/20/17 15:36 05/20/17 15:36 05/20/17 15:36 05/20/17 15:36 05/20/17 15:36 - Medications Medications: Current Medications Dextrose (Dextrose 50% Inj) 0 ml IV STAT PRN; Protocol PRN Reason: Hypoglycemia Protocol Dextrose (Glutose 15) 0 gm PO ONCE PRN; Protocol PRN Reason: Hypoglycemia Protocol Glucagon (Glucagen Diagnostic Kit) 0 mg IM STAT PRN; Protocol PRN Reason: Hypoglycemia Protocol Heparin Sodium (Porcine) (Heparin) 5,000 units SC Q12 [facility] Last Admin: 05/20/17 10:39 Dose: 5,000 units Piperacillin Sod/Tazobactam (Sod 3.375 gm/ Sodium Chloride) 100 mls @ 200 mls/ hr IVPB Q6H [facility] Last Admin: 05/20/17 16:41 Dose: 200 mls/hr Sodium Chloride (Sodium Chloride 0.9%) 1,000 mls @ 100 mls/hr IV .Q10H [facility] Last Admin: 05/20/17 17:46 Dose: 100 mls/hr Metronidazole (Flagyl) 500 mg in 100 mls @ 100 mls/hr IVPB Q8 [facility] Last Admin: 05/20/17 13:05 Dose: 100 mls/hr Dextrose (Dextrose 5% In Water 1000 Ml) 1,000 mls @ 0 mls/hr IV .Q0M PRN; Protocol; Per Protocol PRN Reason: Hypoglycemia Protocol Insulin Human Regular (Novolin R) 0 unit SC ACHS [facility] PRN Reason: Protocol Last Admin: 05/20/17 17:19 Dose: Not Given Lisinopril (Zestril) 20 mg PO DAILY [facility] Last Admin: 05/20/17 10:39 Dose: 20 mg Ondansetron HCl (Zofran Inj) 4 mg IVP Q6 PRN PRN Reason: Nausea/Vomiting Pantoprazole Sodium (Protonix Ec Tab) 40 mg PO DAILY [facility] Last Admin: 05/20/17 10:33 Dose: 40 mg Pneumococcal Polyvalent Vaccine (Pneumovax 23 Vaccine) 0.5 ml IM .ONCE ONE Stop: 05/22/17 10:01 - Labs Labs: 05/20/17 08:42 05/20/17 08:42 PT 12.7 SECONDS (9.7-12.2) H 05/19/17 07:22 INR 1.1 05/19/17 07:22 Assessment and Plan (1) SIRS (systemic inflammatory response syndrome) Status: Acute (2) Ascending cholangitis Status: Acute (3) Transaminitis Status: Acute (4) Hypokalemia Status: Acute (5) Constipation Status: Chronic (6) Hypertension Status: Chronic (7) Ueb-wbiqcom-[id number] diabetes mellitus without complications Status: Chronic (8) Prophylactic measure Status: Acute Attending/Attestation - Attestation I have personally seen and examined this patient.: Yes I have fully participated in the care of the patient.: Yes I have reviewed all pertinent clinical information, including history, physical exam and plan: Yes Notes (Text): Patient seen, examined and case discussed with day-time resident. Patient's abdominal pain improved, Patient is annoyed with IV Krider because of pain associated with IV. Patient reports he is hungry, denies nausea, denies vomitting, denies abdominal pain compared to yesterday. Per GI, patient may have bland diet, recommended for ID consult. Patient has completed MRCP, awaiting official report. Continue IV abx. Please ask resident taking over the case in the AM to get medical records from [facility] in regards to why CBD stent was placed about ten years ago. Assessment and Plan (1) SIRS (systemic inflammatory response syndrome) Assessment & Plan: Criteria: WBC: 15.5, Bands 24 Tmax: 100.2F * Improving Lactate Acid: 2.0 * Not collected the repeat lactate Acid at: 10:22 AM on 05/19/17 Source: ascending cholangitis Blood culture: No growth for 24 hours X2 Urine culture: negative ABx: Zosyn 3.375 IV Q6H (active since 05/19/17), Flagyl 500mg IVPB Q8H (active since 05/19/17) NS 100cc/hr procalcitonin: elevated on admission Status: Acute (2) Ascending cholangitis Assessment & Plan: GI (Dr. Quarles) on consult-->help appreciated May have bland diet; called in today 05/20/17 Infectious Disease (Dr. German) on consult-->help appreciated 05/17: Case discussed with GI, suspection for infected in light of stent history, add Flagyl in addition to Zosyn, and monitor blood culture results Recommends for lipase, amylase and prefer for MRCP with contrast if possible 05/18: Awaiting report from MRCP to determine next step by GI Abx: Zosyn 3.375 IVPB Q6H (active since 05/19/17) Flagyl 500mg IVPB Q8H (active since 05/19/17) CT Abdomen/Pelvis (05/19/17): Biliary ductal dilatation. Mild enhancement of common hepatic/common bile ducy, cannot exclude cholangitis. Soft tissue density within common hepatic/common bile duct may represent calculi or mass. Suggest MRI/MRCP. Incidental/non-acute findings are described above. Status: Acute (3) Transaminitis Assessment & Plan: Elevated-->improving Hepatitis panel: negative AFB and CA 19.9: within normal CT Abdomen/Pelvis (05/19/17): Biliary ductal dilatation. Mild enhancement of common hepatic/common bile ducy, cannot exclude cholangitis. Soft tissue density within common hepatic/common bile duct may represent calculi or mass. Suggest MRI/MRCP. Incidental/non-acute findings are described above. Follow-up MRCP report not yet available Status: Acute (4) Hypokalemia Assessment & Plan: monitor and replete Status: Acute (5) Constipation Assessment & Plan: Patient reports his normal he goes every couple of days Status: Chronic (6) Hypertension Assessment & Plan: Lisinopril 20mg PO daily monitor vital signs on IV fluids Status: Chronic (7) [id number] diabetes mellitus without complications Assessment & Plan: Pending [id number] Hypoglycemic protocol Monitor Accuchecks Q6H Off metformin (home medication) Status: Chronic (8) Prophylactic measure Assessment & Plan: Diet advanced by GI to [place] Protonix 40mg IV daily Heparin 5000 units [id number] Status: Acute Disposition: Follow-up MRCP report to determine GI next recommendation.
[2017-05-21] MEDS: Piperacillin/Tazobact 3.375 GM in Sodium Chloride 100 ML IVPB SCH ×4 (03:57→21:51)
[2017-05-21] MEDS: Sodium Chloride 0.9% 1,000 ML IV SCH ×3 (03:58→17:48)
[2017-05-21] MEDS: metroNIDAZOLE IV 500 mg/100 ml 500 MG/100 ML BAG IVPB SCH ×3 (05:13→21:19)
[2017-05-21 07:51] LABS: BASO # 0.1 K/uL (0.0-0.2); EOS # 0.2 K/uL (0.0-0.7); EOS % 3.2 % (0.0-4.0); LYMPH # 1.9 K/uL (1.0-4.3); LYMPH % 26.7 % (20.0-40.0); MEAN CELL VOLUME 83.2 fL (80.0-94.0); MEAN CORPUSCULAR HEMOGLOBIN 27.8 pg (27.0-31.0); MEAN CORPUSCULAR HGB CONC 33.4 g/dL (33.0-37.0); MONO # 0.8 K/uL (0.0-0.8); MONO % 10.7 % (0.0-10.0); NEUT # 4.2 K/uL (1.8-7.0); NEUT % 58.4 % (50.0-75.0); NRBC % 0.1 % (0.0-2.0); RBC 4.68 Mil/uL (4.40-5.90); RED CELL DISTRIBUTION WIDTH 14.7 % (11.5-14.5); WHITE BLOOD COUNT 7.1 K/uL (4.8-10.8)
[2017-05-21] MEDS: (Novolin R) Insulin Human Regular 100 units/ml vial SC SCH ×4 (08:03→21:50)
[2017-05-21 08:13] LABS: ALBUMIN 3.5 g/dL (3.5-5.0); ALT/SGPT 156 U/L (21-72); AST/SGOT 58 U/L (17-59); BLOOD UREA NITROGEN 8 mg/dL (9-20); CALCIUM 8.8 mg/dl (8.6-10.4); GFR AFRICAN-AMERICAN > 60; GFR NON-AFRICAN AMERICAN > 60; MAGNESIUM 1.9 mg/dL (1.6-2.3)
[2017-05-21] MEDS ORDERED: Pneumococcal 23-Valent Vaccine IM ONE (10:00)
[2017-05-21] MEDS ORDERED: Influenza Vaccine 60 mcg/0.5 mL SYR (4YR UP) IM ONE (10:00)
[2017-05-21] MEDS: Saccharomyces Boulardi 250 mg Cap PO SCH ×2 (10:45→17:49)
[2017-05-21] MEDS: Pantoprazole 40 mg EC Tab PO SCH (10:45)
--- NOTE | 2017-05-21 12:39 | CP.PCM.PN ---
Subjective - Date & Time of Evaluation Date of Evaluation: 05/21/17 Time of Evaluation: 08:00 - Subjective Subjective: afeb blood c/s neg thus far GI on board LFT coming down Objective - Vital Signs/Intake and Output Vital Signs (last 24 hours): Temp Pulse Resp BP Pulse Ox 98.2 F 68 20 167/91 H 98 05/21/17 08:47 05/21/17 08:47 05/21/17 08:47 05/21/17 08:47 05/21/17 08:47 Intake and Output: 05/21/17 05/21/17 06:59 18:59 Intake Total 2300 Balance 2300 - Medications Medications: Current Medications Dextrose (Dextrose 50% Inj) 0 ml IV STAT PRN; Protocol PRN Reason: Hypoglycemia Protocol Dextrose (Glutose 15) 0 gm PO ONCE PRN; Protocol PRN Reason: Hypoglycemia Protocol Glucagon (Glucagen Diagnostic Kit) 0 mg IM STAT PRN; Protocol PRN Reason: Hypoglycemia Protocol Heparin Sodium (Porcine) (Heparin) 5,000 units SC Q12 [facility] Last Admin: 05/21/17 10:46 Dose: 5,000 units Piperacillin Sod/Tazobactam (Sod 3.375 gm/ Sodium Chloride) 100 mls @ 200 mls/ hr IVPB Q6H [facility] Last Admin: 05/21/17 10:56 Dose: 200 mls/hr Sodium Chloride (Sodium Chloride 0.9%) 1,000 mls @ 100 mls/hr IV .Q10H [facility] Last Admin: 05/21/17 05:45 Dose: Not Given Metronidazole (Flagyl) 500 mg in 100 mls @ 100 mls/hr IVPB Q8 [facility] Last Admin: 05/21/17 05:13 Dose: 100 mls/hr Dextrose (Dextrose 5% In Water 1000 Ml) 1,000 mls @ 0 mls/hr IV .Q0M PRN; Protocol; Per Protocol PRN Reason: Hypoglycemia Protocol Insulin Human Regular (Novolin R) 0 unit SC ACHS [facility] PRN Reason: Protocol Last Admin: 05/21/17 12:16 Dose: Not Given Lisinopril (Zestril) 20 mg PO DAILY [facility] Last Admin: 05/21/17 10:45 Dose: 20 mg Ondansetron HCl (Zofran Inj) 4 mg IVP Q6 PRN PRN Reason: Nausea/Vomiting Pantoprazole Sodium (Protonix Ec Tab) 40 mg PO DAILY [facility] Last Admin: 05/21/17 10:45 Dose: 40 mg Pneumococcal Polyvalent Vaccine (Pneumovax 23 Vaccine) 0.5 ml IM .ONCE ONE Stop: 05/22/17 10:01 Saccharomyces Boulardii (Florastor) 250 mg PO BID [facility] Last Admin: 05/21/17 10:45 Dose: 250 mg - Labs Labs: 05/21/17 07:40 05/21/17 07:40 PT 12.7 SECONDS (9.7-12.2) H 05/19/17 07:22 INR 1.1 05/19/17 07:22 - Constitutional Appears: Chronically Ill - Head Exam Head Exam: NORMOCEPHALIC - Eye Exam Eye Exam: PERRL - ENT Exam ENT Exam: Mucous Membranes Dry - Neck Exam Neck Exam: absent: Lymphadenopathy - Respiratory Exam Respiratory Exam: Decreased Breath Sounds - Cardiovascular Exam Cardiovascular Exam: REGULAR RHYTHM - GI/Abdominal Exam GI & Abdominal Exam: Distended Assessment and Plan (1) Ascending cholangitis Status: Acute (2) SIRS (systemic inflammatory response syndrome) Status: Acute (3) Transaminitis Status: Acute
--- NOTE | 2017-05-21 15:40 | CP.PCM.PN ---
Subjective - Date & Time of Evaluation Date of Evaluation: 05/21/17 Time of Evaluation: 07:40 - Subjective Subjective: Patient seen and examined at bedside. Patient resting comfortably in bed. Patient says he noticed some black stool last night when he was using the bathroom. Otherwise patient feels well and abdominal pain has resolved. Patient denies fever, chills, headache, dizziness, chest pain, SOB, n/v/d/c, leg pain/ swelling. Objective - Vital Signs/Intake and Output Vital Signs (last 24 hours): Temp Pulse Resp BP Pulse Ox 98.2 F 68 20 167/91 H 98 05/21/17 08:47 05/21/17 08:47 05/21/17 08:47 05/21/17 08:47 05/21/17 08:47 Intake and Output: 05/21/17 05/21/17 06:59 18:59 Intake Total 2300 Balance 2300 - Medications Medications: Current Medications Dextrose (Dextrose 50% Inj) 0 ml IV STAT PRN; Protocol PRN Reason: Hypoglycemia Protocol Dextrose (Glutose 15) 0 gm PO ONCE PRN; Protocol PRN Reason: Hypoglycemia Protocol Glucagon (Glucagen Diagnostic Kit) 0 mg IM STAT PRN; Protocol PRN Reason: Hypoglycemia Protocol Heparin Sodium (Porcine) (Heparin) 5,000 units SC Q12 [facility] Last Admin: 05/21/17 10:46 Dose: 5,000 units Piperacillin Sod/Tazobactam (Sod 3.375 gm/ Sodium Chloride) 100 mls @ 200 mls/ hr IVPB Q6H [facility] Last Admin: 05/21/17 10:56 Dose: 200 mls/hr Sodium Chloride (Sodium Chloride 0.9%) 1,000 mls @ 100 mls/hr IV .Q10H [facility] Last Admin: 05/21/17 05:45 Dose: Not Given Metronidazole (Flagyl) 500 mg in 100 mls @ 100 mls/hr IVPB Q8 [facility] Last Admin: 05/21/17 13:31 Dose: 100 mls/hr Dextrose (Dextrose 5% In Water 1000 Ml) 1,000 mls @ 0 mls/hr IV .Q0M PRN; Protocol; Per Protocol PRN Reason: Hypoglycemia Protocol Insulin Human Regular (Novolin R) 0 unit SC ACHS [facility] PRN Reason: Protocol Last Admin: 05/21/17 12:16 Dose: Not Given Lisinopril (Zestril) 20 mg PO DAILY [facility] Last Admin: 05/21/17 10:45 Dose: 20 mg Ondansetron HCl (Zofran Inj) 4 mg IVP Q6 PRN PRN Reason: Nausea/Vomiting Pantoprazole Sodium (Protonix Ec Tab) 40 mg PO DAILY [facility] Last Admin: 05/21/17 10:45 Dose: 40 mg Pneumococcal Polyvalent Vaccine (Pneumovax 23 Vaccine) 0.5 ml IM .ONCE ONE Stop: 05/22/17 10:01 Saccharomyces Boulardii (Florastor) 250 mg PO BID [facility] Last Admin: 05/21/17 10:45 Dose: 250 mg - Labs Labs: 05/21/17 07:40 05/21/17 07:40 PT 12.7 SECONDS (9.7-12.2) H 05/19/17 07:22 INR 1.1 05/19/17 07:22 - Constitutional Appears: Non-toxic, No Acute Distress - Head Exam Head Exam: ATRAUMATIC, NORMAL INSPECTION, NORMOCEPHALIC - Eye Exam Eye Exam: EOMI, Normal appearance, PERRL - ENT Exam ENT Exam: Mucous Membranes Moist - Respiratory Exam Respiratory Exam: Clear to Ausculation Bilateral, NORMAL BREATHING PATTERN. absent: Accessory Muscle Use, Rales, Rhonchi, Wheezes, Respiratory Distress - Cardiovascular Exam Cardiovascular Exam: RRR, +S1, +S2. absent: Bradycardia, Tachycardia, Diastolic murmur, Gallop, Rubs, Murmur - GI/Abdominal Exam GI & Abdominal Exam: Soft, Normal Bowel Sounds. absent: Distended, Guarding, Rigid, Tenderness, Mass - Extremities Exam Extremities Exam: Normal Inspection. absent: Calf Tenderness, Pedal Edema - Neurological Exam Neurological Exam: Alert, Awake, Oriented x3 - Psychiatric Exam Psychiatric exam: Normal Affect, Normal Mood - Skin Skin Exam: Dry, Intact, Normal Color, Warm Assessment and Plan (1) Cholangitis Status: Acute (2) Hypokalemia Status: Acute (3) [id number] diabetes mellitus without complications Status: Chronic (4) Hypertension Status: Chronic (5) Constipation Status: Chronic (6) Prophylactic measure Status: Acute - Assessment and Plan (Free Text) Plan: Cholangitis * GI consulted, Dr. Quarles, help appreciated * MRCP pending * S/P cholecystectomy 10 years ago * Lactate 2.0 05/19/17 * Leukocytosis resolved and afebrile since fever on admission day * Procal down to 4.49 from 19.37 * Transaminitis improving * Amylase and Lipase WNL * AFP: 2 * CA 19-9: 15.5 * NPO, NS @ 100cc/h * blood cultures negative * urine culture negative * Flu negative Imaging * Abdomen/Pelvis CT: Biliary ductal dilatation, mild enhancement of common hepatic/common bile duct (cannot exclude cholangitis), and soft tissue density within common hepatic/common bile duct, which may represent calculi or mass ( Suggest MRI/MRCP). Meds * Zosyn * Flagyl * Toradol prn pain * Motrin prn fever * Zofran prn nausea/vomiting Black stool * Stool occult negative Transaminitis * Improving * likely 2/2 cholangitis * hepatitis panel negative Hypokalemia - resolved * monitor with morning labs Kkr-hcnmegt-qqnnybkke diabetes mellitus without complications * Monitor with accuchecks ACHS * HbA1c: 8.0 * ISS low dose * Will hold home metformin and glipizide for now Hypertension * BP 136/84 on admission * Start home med: Lisinopril/HCTZ 20/25 mg daily * monitor Constipation * Colace 100 mg BID Prophylactic measure * DVT: Ambulates, Heparin, SCDs * GI: protonix
[2017-05-21 21:38] VITALS: O2SAT 98
[2017-05-22 00:31] VITALS: RESP 20
[2017-05-22] MEDS: Piperacillin/Tazobact 3.375 GM in Sodium Chloride 100 ML IVPB SCH ×2 (04:05→10:03)
[2017-05-22] MEDS: metroNIDAZOLE IV 500 mg/100 ml 500 MG/100 ML BAG IVPB SCH ×2 (05:40→14:20)
[2017-05-22 06:14] LABS: BASO % 0.7 % (0.0-2.0); EOS # 0.2 K/uL (0.0-0.7); EOS % 3.4 % (0.0-4.0); HEMOGLOBIN 13.3 g/dL (12.0-18.0); LYMPH % 28.9 % (20.0-40.0); MEAN CELL VOLUME 82.4 fL (80.0-94.0); MEAN CORPUSCULAR HEMOGLOBIN 28.3 pg (27.0-31.0); MEAN CORPUSCULAR HGB CONC 34.4 g/dL (33.0-37.0); MEAN PLATELET VOLUME 8.9 fL (7.2-11.7); MONO # 0.6 K/uL (0.0-0.8); MONO % 8.5 % (0.0-10.0); NEUT # 4.1 K/uL (1.8-7.0); NEUT % 58.5 % (50.0-75.0); NRBC % 0.1 % (0.0-2.0); RBC 4.7 Mil/uL (4.40-5.90); RED CELL DISTRIBUTION WIDTH 14.8 % (11.5-14.5); WHITE BLOOD COUNT 6.9 K/uL (4.8-10.8)
[2017-05-22 06:36] LABS: ALB/GLOB RATIO 1.1 (1.0-2.1); ALBUMIN 3.6 g/dL (3.5-5.0); ALT/SGPT 122 U/L (21-72); AST/SGOT 81 U/L (17-59); BLOOD UREA NITROGEN 7 mg/dL (9-20); CALCIUM 8.9 mg/dl (8.6-10.4); GFR AFRICAN-AMERICAN > 60; GFR NON-AFRICAN AMERICAN > 60
[2017-05-22] MEDS: (Novolin R) Insulin Human Regular 100 units/ml vial SC SCH ×2 (07:57→12:50)
[2017-05-22] MEDS ORDERED: Pneumococcal 23-Valent Vaccine IM ONE (10:00)
[2017-05-22] MEDS ORDERED: Influenza Vaccine 60 mcg/0.5 mL SYR (4YR UP) IM ONE (10:00)
[2017-05-22] MEDS: Pantoprazole 40 mg EC Tab PO SCH (10:05)
[2017-05-22] MEDS: Saccharomyces Boulardi 250 mg Cap PO SCH (10:06)
[2017-05-22] MEDS: Sodium Chloride 0.9% 1,000 ML IV SCH (12:59)
--- NOTE | 2017-05-22 13:31 | MRI ---
MRI abdomen without/with IV contrast MRCP Indication: Ascending cholangitis Technique: Multiplanar, multi sequence magnetic resonance images of the abdomen were obtained without and with the administration of intravenous gadolinium using a multi phase abdomen protocol. Rotating maximum intensity projection images of the biliary system were generated. A total of 1131 images submitted for review Comparison: CT abdomen pelvis with IV contrast performed 05/19/17. Findings: Hepatic steatosis. No focal hepatic lesions identified. Cholecystectomy. Common bile duct stent seen to better advantage on CT performed the same day. Multiple filling defects are evident within the common bile duct. The extrahepatic common bile duct measures approximately 14 mm in diameter. Evidence of dural thickening and enhancement of the bile duct haile. Mild intrahepatic biliary ductal dilatation. The pancreatic duct does not appear dilated. The spleen, pancreas, and adrenal glands appear unremarkable. The kidneys enhance symmetrically. No evidence hydronephrosis or obstructing calculus. No bulky adenopathy identified. Limited views of the inferior thorax appear unremarkable. Impression: Hepatic steatosis. Cholecystectomy. Common bile duct stent seen to better advantage on CT performed the same day. Multiple filling defects are evident within the common bile duct. Mild intrahepatic biliary ductal dilatation. The extrahepatic common bile duct measures approximately 14 mm in diameter. Evidence of dural thickening and enhancement of the bile duct haile ; possibly related to ascending cholangitis. Correlate clinically. Preliminary impression was provided by virtual radiologic.
[2017-05-22] MEDS ORDERED: Potassium Chloride 20 mEq ER Tab PO ONE (14:30)
--- NOTE | 2017-05-22 15:00 | CP.PCM.DIS ---
Provider - Provider Date of Admission: 05/19/17 03:10 Attending physician: Treva Zaldivar DO Consults: Dr. Willam German Time Spent in preparation of Discharge (in minutes): 35 Diagnosis - Discharge Diagnosis (1) Cholangitis Status: Acute (2) Hypokalemia Status: Acute (3) Vnn-gouxyfw-gvwsnjezv diabetes mellitus without complications Status: Chronic (4) Hypertension Status: Chronic (5) Constipation Status: Chronic (6) Prophylactic measure Status: Acute Hospital Course - Lab Results Lab Results: Micro Results 05/19/17 02:15 Blood Blood Culture - Preliminary NO GROWTH AFTER 3 DAYS 05/19/17 00:15 Blood Blood Culture - Preliminary NO GROWTH AFTER 3 DAYS 05/21/17 09:00 Stool Ova and Parasite Concentrate Exam - Final 05/19/17 09:56 Urine,Clean Catch Urine Culture - Final No Growth (<1,000 CFU/ML) Most Recent Lab Values WBC 6.9 K/uL (4.8-10.8) 05/22/17 06:06 RBC 4.70 Mil/uL (4.40-5.90) 05/22/17 06:06 Hgb 13.3 g/dL (12.0-18.0) 05/22/17 06:06 Hct 38.7 % (35.0-51.0) 05/22/17 06:06 MCV 82.4 fL (80.0-94.0) 05/22/17 06:06 MCH 28.3 pg (27.0-31.0) 05/22/17 06:06 MCHC 34.4 g/dL (33.0-37.0) 05/22/17 06:06 RDW 14.8 % (11.5-14.5) H 05/22/17 06:06 Plt Count 322 K/uL (130-400) 05/22/17 06:06 MPV 8.9 fL (7.2-11.7) 05/22/17 06:06 Neut % (Auto) 58.5 % (50.0-75.0) 05/22/17 06:06 Lymph % (Auto) 28.9 % (20.0-40.0) 05/22/17 06:06 [place] % (Auto) 8.5 % (0.0-10.0) 05/22/17 06:06 Eos % (Auto) 3.4 % (0.0-4.0) 05/22/17 06:06 Baso % (Auto) 0.7 % (0.0-2.0) 05/22/17 06:06 Neut # (Auto) 4.1 K/uL (1.8-7.0) 05/22/17 06:06 Lymph # (Auto) 2.0 K/uL (1.0-4.3) 05/22/17 06:06 [place] # (Auto) 0.6 K/uL (0.0-0.8) 05/22/17 06:06 Eos # (Auto) 0.2 K/uL (0.0-0.7) 05/22/17 06:06 Baso # (Auto) 0.0 K/uL (0.0-0.2) 05/22/17 06:06 Neutrophils % (Manual) 69 % (50-75) 05/19/17 00:47 Band Neutrophils % 24 % (0-2) H* 05/19/17 00:47 Lymphocytes % (Manual) 6 % (20-40) L 05/19/17 00:47 Monocytes % (Manual) 0 % (0-10) 05/19/17 00:47 Myelocytes % 1 % (0-0) H 05/19/17 00:47 Platelet Estimate Normal (NORMAL) 05/19/17 00:47 PT 12.7 SECONDS (9.7-12.2) H 05/19/17 07:22 INR 1.1 05/19/17 07:22 Sodium 143 mmol/L (132-148) 05/22/17 06:06 Potassium 3.5 mmol/L (3.6-5.2) L 05/22/17 06:06 Chloride 105 mmol/L (98-107) 05/22/17 06:06 Carbon Dioxide 26 mmol/L (22-30) 05/22/17 06:06 Anion Gap 15 (10-20) 05/22/17 06:06 BUN 7 mg/dL (9-20) L 05/22/17 06:06 Creatinine 1.0 mg/dL (0.8-1.5) 05/22/17 06:06 Est GFR ( Amer) > 60 05/22/17 06:06 Est GFR (Non-Af Amer) > 60 05/22/17 06:06 POC Glucose (mg/dL) 138 mg/dL (65-110) H 05/22/17 07:08 Random Glucose 148 mg/dL (75-110) H 05/22/17 06:06 Hemoglobin A1c 8.0 % (4.2-6.5) H 05/19/17 13:56 Lactic Acid 2.0 mmol/L (0.7-2.1) 05/19/17 07:22 Calcium 8.9 mg/dl (8.6-10.4) 05/22/17 06:06 Phosphorus 2.5 mg/dL (2.5-4.5) 05/21/17 07:40 Magnesium 1.9 mg/dL (1.6-2.3) 05/21/17 07:40 Total Bilirubin 0.8 mg/dL (0.2-1.3) 05/22/17 06:06 AST 81 U/L (17-59) H D 05/22/17 06:06 ALT 122 U/L (21-72) H D 05/22/17 06:06 Alkaline Phosphatase 145 U/L (38-126) H 05/22/17 06:06 Total Protein 6.9 g/dL (6.3-8.3) 05/22/17 06:06 Albumin 3.6 g/dL (3.5-5.0) 05/22/17 06:06 Globulin 3.3 gm/dL (2.2-3.9) 05/22/17 06:06 Albumin/Globulin Ratio 1.1 (1.0-2.1) 05/22/17 06:06 Amylase 45 U/L (30-110) 05/20/17 08:42 Lipase 48 U/L (23-300) 05/20/17 08:42 Alpha Fetoprotein 2.0 ng/mL (0.0-7.5) 05/19/17 13:56 CA 19-9 Antigen 15.5 U/mL (0-37) 05/19/17 13:56 Procalcitonin 4.49 NG/ML (0.19-0.49) H 05/21/17 07:40 Urine Color Yellow (YELLOW) 05/19/17 08:51 Urine Clarity Clear (Clear) 05/19/17 08:51 Urine pH 6.0 (5.0-8.0) 05/19/17 08:51 Ur Specific [place] 1.024 (1.003-1.030) 05/19/17 08:51 Urine Protein Negative mg/dL (NEGATIVE) 05/19/17 08:51 Urine Glucose (UA) Normal mg/dL (Normal) 05/19/17 08:51 Urine Ketones Negative mg/dL (NEGATIVE) 05/19/17 08:51 Urine Blood 1+ (NEGATIVE) H 05/19/17 08:51 Urine Nitrate Negative (NEGATIVE) 05/19/17 08:51 Urine Bilirubin Negative (NEGATIVE) 05/19/17 08:51 Urine Urobilinogen Normal mg/dL (0.2-1.0) 05/19/17 08:51 Ur Leukocyte Esterase Neg [place]/uL (Negative) 05/19/17 08:51 Urine WBC (Auto) < 1 /hpf (0-5) 05/19/17 08:51 Urine RBC (Auto) 2 /hpf (0-3) 05/19/17 08:51 Stool Occult Blood Negative (NEGATIVE) 05/21/17 04:47 Hepatitis A IgM Ab Negative (NEGATIVE) 05/19/17 13:56 Hep Bs Antigen Negative (NEGATIVE) 05/19/17 13:56 Hep B Core IgM Ab Negative (NEGATIVE) 05/19/17 13:56 Hepatitis C Antibody Negative (NEGATIVE) 05/19/17 13:56 Influenza Typ A,B (EIA) Negative for flu a/b (NEGATIVE) 05/19/17 00:47 - Hospital Course Hospital Course: Upon admission: Patient is a 56 year old male with PMH NIDDM and HTN who presents to the ED complaining of epigastric pain. Patient said the pain started a couple of days ago as a sharp pain radiating towards the right upper quadrant, worse with food , which gradually worsened until today when he started having fever, chills, nausea, and vomiting. Patient says he vomited 4 times today and describes it as non bloody and non bilious. Patient admits to associated dizziness, headache, weakness, and shortness of breath. Patient also admits to constipation, which he says is normal for him and not new. Of note, patient mentions that he had his gallbladder removed 10 years ago for similar symptoms. He also mentions recent travel to the [place] in February of last year. Patient denies syncope, changes in vision/hearing, chest pain, palpitations, diarrhea, changes in urination, and pain/numbness in the lower extremities. Hospital course: Patient was admitted with cholangitis. Abdomen/Pelvis CT done on admission showed biliary ductal dilatation, mild enhancement of common hepatic/common bile duct (cannot exclude cholangitis), and soft tissue density within common hepatic/common bile duct, which may represent calculi or mass (Suggest MRI/MRCP) . Dr. Quarles and Dr. German were consulted and patient was started on fluids with Zosyn and Flagyl. He was also given toradol for pain, zofran for nausea/ vomiting, and motrin for fever. Dr. Quarles ordered MRCP which was not suspicious for new stones. AFP, CA 19-9, amylase, and lipase were all within normal limits. Blood cultures, urine cultures and flu were all negative. Patient also had some black stool during admission however, stool occult blood was negative. Patient had hepatitis panel checked due to transaminitis which was found to be negative. Diabetes was managed with low dose ISS and monitored with accuchecks. HTN was managed with patients home meds. Upon discharge: Patient stable for discharge per Dr. Laboy and Dr. Quarles. Patient was [id number] with the following instructions: "Please follow up at the [facility] at [facility] for results of pending lab work. An appointment can be made by calling . Please Continue all home medications and start the following: Ciprofloxacin 500 mg breakfast and dinner (twice daily) for 7 days Flagyl 500 mg at breakfast, lunch, and dinnertime (3 times daily) for 7 days Please take a probiotic or eat yogurt with live active cultures for 37 days. Please do not take antibiotic dose within 2 hours of probiotic dose. Please follow up with Dr. Quarles in his office in 7 days. Appointments can be made by calling his office at If you experience new or worsening symptoms, please return to the nearest ER." Please note that this is a summary of events. For more details please see complete medical record. Discharge Exam - Head Exam Head Exam: ATRAUMATIC, NORMAL INSPECTION, NORMOCEPHALIC - Eye Exam Eye Exam: EOMI, Normal appearance, PERRL - ENT Exam ENT Exam: Mucous Membranes Moist - Respiratory Exam Respiratory Exam: Clear to PA & Lateral, NORMAL BREATHING PATTERN, UNREMARKABLE - Cardiovascular Exam Cardiovascular Exam: RRR, +S1, +S2. absent: Bradycardia, Tachycardia, Diastolic murmur, Gallop, Rubs, Systolic Murmur - GI/Abdominal Exam GI & Abdominal Exam: Normal Bowel Sounds, Unremarkable - Extremities Exam Extremities exam: normal inspection - Neurological Exam Neurological exam: Alert, Oriented x3 - Psychiatric Exam Psychiatric exam: Normal Affect, Normal Mood - Skin Skin Exam: Dry, Intact, Normal Color, Warm Discharge Plan - Discharge Medications Prescriptions: Ciprofloxacin HCl [Cipro] 500 mg PO BID #14 tablet Metronidazole [Flagyl] 500 mg PO TID #21 tablet - Follow Up Plan Condition: GOOD Disposition: HOME/ ROUTINE Instructions: Ciprofloxacin (Systemic), DASH Diet, Constipation, Adult (DC), Metronidazole (Systemic), Gallstones (DC), Hypertension (DC) Additional Instructions: Please follow up at the [facility] at [facility] for results of pending lab work. An appointment can be made by calling . Please Continue all home medications and start the following: Ciprofloxacin 500 mg breakfast and dinner (twice daily) for 7 days Flagyl 500 mg at breakfast, lunch, and dinnertime (3 times daily) for 7 days Please follow up with Dr. Quarles in his office in 7 days. Appointments can be made by calling his office at If you experience new or worsening symptoms, please return to the nearest ER. Referrals: [facility] at [facility] [Outside]
[2017-05-22 17:09] VITALS: BP 141/91; PULSE 65; TEMP 98.1
== END 2017-05-22 17:22 | disposition home or self-care (01) | DRG 901 ==
LOC: C.ER → C.3T 03:10
PROVIDERS: ADMIT Family Medicine; ATTEND Hospitalist
DX: A41.9 Sepsis, unspecified organism (principal); K83.0 Cholangitis; E87.6 Hypokalemia; E11.9 Type 2 diabetes mellitus without complications; I10 Essential (primary) hypertension; E78.00 Pure hypercholesterolemia, unspecified; Z90.49 Acquired absence of other specified parts of digestive tract; R00.0 Tachycardia, unspecified; K59.00 Constipation, unspecified